=== PATIENT | female | born 1965 ===

== ENCOUNTER → 2018-04-04 | Outpatient (CLI) | payer OTHER | END | disposition home or self-care (01) | LOC: MAMO-SONO 11:15 → SONOGRAMA 11:33 | DX: N84.0 Polyp of corpus uteri (principal); N92.0 Excessive and frequent menstruation with regular cycle ==

== ENCOUNTER 2018-06-28 11:17 | Day surgery (SDC) | payer OTHER ==
[~2018-06-28 11:17] MED LIST: ARMOUR THYROID PO; ASPIR 8181 MG PO; ATORVASTATIN CA10 MG PO; BENICAR HCT 401 EACH PO; BUSP PO; JANUMET PO; LAMICTA PO; METFORMIN HCL500 MG PO; PRILOSEC10 MG PO
[2018-06-28] MEDS ORDERED: CODE1TAB37 PO (14:30)
[2018-06-28] MEDS ORDERED: DOXYCYCLINE HY100 MG PO (14:30)
== END 2018-06-28 17:25 | disposition home or self-care (01) ==
LOC: CIR.AMB 11:17
DX: N84.0 Polyp of corpus uteri (principal); D25.0 Submucous leiomyoma of uterus